=== PATIENT | male | born 1975 | race Caucasian/White ===

== ENCOUNTER 2019-01-12 11:15 | Observation (INO) | payer SELFPAY ==
[2019-01-12 11:43] LABS: Absolute Lymphocytes (CBC) 1.6 K/uL (0.7-4.9); Absolute Neutrophil 9.9 K/uL (1.8-8.0); Basophils % 0.5 % (0-1.3); Eosinophils % 0.9 % (0-4.4); Hematocrit 44.4 % (39.6-49.0); Lymphocytes % 12.6 % (15.3-44.8); MPV 7.4 fL (7.6-11.3); Monocytes % 8.2 % (3.3-12.3); RBC Red Blood Cell Count 4.84 M/uL (4.33-5.43)
[2019-01-12] MEDS ORDERED: FAMOTIDINE 20 MG/2 ML VIAL IV ONE (11:47)
[2019-01-12] MEDS ORDERED: ASPIRIN 81 MG CHEWABLE TABLET ONE (11:47)
[2019-01-12 11:55] LABS: Protime INR 0.98
[2019-01-12 12:02] LABS: ALT/SGPT 113 U/L (12-78); AST/SGOT 74 U/L (15-37); Alkaline Phosphatase 100 U/L (45-117); BUN Blood Urea Nitrogen 13 mg/dL (7-18); Bicarbonate 19 mmol/L (21-32); Bilirubin Direct 0.2 mg/dL (0-0.2); Bilirubin Total 0.9 mg/dL (0.2-1.0); Glucose Level 99 mg/dL (74-106); Lipase 136 U/L (73-393); Magnesium 2.1 mg/dL (1.8-2.4); NT PRO-BNP 27 pg/mL (<125); Potassium 3.8 mmol/L (3.5-5.1); Protein, Total 7.6 g/dL (6.4-8.2); Sodium Level 137 mmol/L (136-145); Troponin (Emerg Dept Use Only) < 0.02 ng/mL (0.0-0.045)
--- NOTE | 2019-01-12 12:05 | RAD REPORT ---
EXAM DESCRIPTION: Shashank Single View01/12/2019 11:50 am CLINICAL HISTORY: Chest pain COMPARISON: none FINDINGS: The lungs appear clear of acute infiltrate. The heart is normal size IMPRESSION: No acute abnormalities displayed
--- NOTE | 2019-01-12 12:32 | RAD REPORT ---
EXAM DESCRIPTION: CT - Head Brain Wo Cont - 01/12/2019 12:23 pm CLINICAL HISTORY: Visual disturbance COMPARISON: None. TECHNIQUE: Computed axial tomography of the head was obtained. IV contrast was not requested. All CT scans are performed using dose optimization technique as appropriate and may include automated exposure control or mA/KV adjustment according to patient size. FINDINGS: An intracranial bleed is not seen . The ventricles are normal in caliber. No extra-axial fluid collection is noted. Fluid within the sinuses/ mastoids is not seen. IMPRESSION: No acute intracranial abnormality is seen. If patient's symptoms persist MRI of the bra in would be recommended.
--- NOTE | 2019-01-12 12:55 | ER ---
Nurse's Notes [facility] Name: Richy Rose Age: 43 yrs Sex: Male : 1975 Arrival Date: 01/12/2019 Time: 11:16 Bed 3 Private MD: Mayco Manzanares T Diagnosis: Chest pain, unspecified Presentation: 01/12 11:20 Presenting complaint: Patient states: Severe chest pain on Thursday and Thursday with la1 elevated BP and blurry vision, got a little better but is coming back, sent by Dr manzanares. Transition of care: patient was not received from another setting of care. Onset of symptoms was January 12, 2019. Risk Assessment: Do you want to hurt yourself or someone else? Patient reports no desire to harm self or others. Initial Sepsis Screen: Does the patient meet any 2 criteria? No. Patient's initial sepsis screen is negative. Does the patient have a suspected source of infection? No. Patient's initial sepsis screen is negative. Care prior to arrival: None. 11:20 Method Of Arrival: Wheelchair la1 11:20 Acuity: MELISSA 2 la1 Historical: - Allergies: 11:22 No Known Allergies; la1 - Home Meds: 11:22 None [Active]; la1 - PMHx: 11:22 None; la1 - Immunization history:: Adult Immunizations up to date. - Social history:: Smoking status: Patient uses tobacco products, smokes one-half pack cigarettes per day. - Ebola Screening: : Patient denies travel to an Ebola-affected area in the 21 days before illness onset. Screenin:20 Abuse screen: Denies threats or abuse. Denies injuries from another. Nutritional sg screening: No deficits noted. Tuberculosis screening: No symptoms or risk factors identified. Never had TB. Fall Risk None identified. Assessment: 11:27 General: Appears in no apparent distress. comfortable, well groomed, well developed, sg well nourished, Behavior is calm, cooperative, appropriate for age. Pain: Complains of pain in chest Pain radiates to left arm Aggravated by increased activity, Also complains of shortness of breath. Neuro: Level of Consciousness is awake, alert, obeys commands, Oriented to person, place, time, situation, Blending Line Attendant are equal bilaterally Moves all extremities. Speech is normal, Facial symmetry appears normal, Pupils are PERRLA. Cardiovascular: Capillary refill is brisk in bilateral fingers Patient's skin is warm and dry. Chest pain is described as mild, quality is crushing, radiates to left arm(s). Respiratory: Airway is patent Respiratory effort is even, unlabored, Respiratory pattern is regular, symmetrical. GI: Abdomen is round. : No signs and/or symptoms were reported regarding the genitourinary system. EENT: No signs and/or symptoms were reported regarding the EENT system. Derm: Skin is pink, warm \T\ dry. Musculoskeletal: No signs and/or symptoms reported regarding the musculoskeletal system. Vital Signs: 11:22 Weight 106.59 kg; Height 5 ft. 11 in. (180.34 cm); la1 11:25 Temp 97.4; sg 11:29 BP 158 / 97; Pulse 79; Resp 15; Pulse Ox 100% ; sg 12:34 BP 149 / 94; Pulse 70; Resp 12; Pulse Ox 100% on R/A; sg 13:40 BP 149 / 98; Pulse 76; Resp 13; Temp 97.2; Pulse Ox 98% on R/A; sg 11:22 Body Mass Index 32.78 (106.59 kg, 180.34 cm) la1 ED Course: 11:16 Patient arrived in ED. mr 11:17 Mayco Manzanares MD is Private Physician. mr 11:18 [facility]erre[facility]. cp 11:18 Chun Winters MD is Attending Physician. cp 11:21 Triage completed. la1 11:22 Arm band placed on left wrist. EKG completed in triage. Results shown to MD. la1 11:27 Ronald Metzger, RN is Primary Nurse. sg 11:27 Patient has correct armband on for positive identification. Placed in gown. Bed in low sg position. conveyor monitor on. Pulse ox on. NIBP on. Warm blanket given. Head of bed elevated. 11:29 Inserted saline lock: 20 gauge in right forearm, using aseptic technique. Blood em1 collected. 11:49 X-ray completed. Portable x-ray completed in exam room. Patient tolerated procedure ls3 well. 11:51 XRAY Chest (1 view) In Process Unspecified. EDMS 11:55 No provider procedures requiring assistance completed. sg 12:23 CT completed. Patient tolerated procedure well. Patient moved to CT via wheelchair. sj Patient moved back from CT. 12:23 CT Head Brain wo Cont In Process Unspecified. EDMS 12:54 Bonifacio Cruz MD is Hospitalizing Provider. cp 13:00 Patient admitted, IV remains in place. intact, bleeding controlled, No redness/swelling sg at site. Pressure dressing applied. Patient maintains SpO2 saturation greater than 95% on room air. Administered Medications: 11:34 Drug: Pepcid 20 mg Route: IVP; Site: right antecubital; sg 11:34 Drug: Aspirin Chewable Tablet 324 mg Route: PO; sg Outcome: 12:55 Decision to Hospitalize by Provider. cp 14:26 Admitted to Tele accompanied by tech, family with patient, via wheelchair, room 431, sg with chart, Report called to Dung MILLER 14:26 Condition: stable 14:26 Instructed on the need for admit, safety practices, Demonstrated understanding of instructions. 14:34 Patient left the ED. jb1 Signatures: Dispatcher [employer] EDRichardson Vasques jb1 Ronald Metzger, RN RN Melanie Walls, Sergio Rea em1 Jorge Douglas RN RN la1 Guerrero Uriostegui, PA PA Amy Nunn ls3
--- NOTE | 2019-01-12 12:55 | EDPHYS ---
Physician Documentation [facility] Name: Richy Rose Age: 43 yrs Sex: Male : 1975 Arrival Date: 01/12/2019 Time: 11:16 Bed 3 Private MD: Mayco Schmitt T ED Physician Chun Winters HPI: 01/12 11:35 This 43 yrs old Male presents to ER via Wheelchair with complaints of Chest cp Pain. 11:35 The patient or guardian reports chest pain that is located primarily in the anterior cp chest wall. 11:35 Onset: 4 day(s) ago. The pain radiates to the left arm. Associated signs and symptoms: cp Pertinent positives: dizziness, Pertinent negatives: abdominal pain, lower extremity pain, lower extremity swelling, vomiting. The chest pain is described as clutching. Duration: The patient or guardian reports multiple episodes, that are intermittent. Modifying factors: the symptoms are aggravated by activity. Severity of pain: in the emergency department the pain has improved moderately. The patient has been recently seen by a physician: Dr. Schmitt earlier today, with similar presenting complaints, and was sent to the [facility] Emergency Department for further evaluation. Historical: - Allergies: 11:22 No Known Allergies; la1 - Home Meds: 11:22 None [Active]; la1 - PMHx: 11:22 None; la1 - Immunization history:: Adult Immunizations up to date. - Social history:: Smoking status: Patient uses tobacco products, smokes one-half pack cigarettes per day. - Ebola Screening: : Patient denies travel to an Ebola-affected area in the 21 days before illness onset. ROS: 11:40 Constitutional: Negative for body aches, chills, fever, poor PO intake. cp 11:40 Eyes: Positive for blurry vision, Negative for discharge, pain, redness, vision loss. cp 11:40 ENT: Negative for drainage from ear(s), ear pain, sore throat, difficulty swallowing, difficulty handling secretions. 11:40 Neck: Negative for pain with movement, pain at rest, stiffness, tenderness. 11:40 Cardiovascular: Positive for chest pain, Negative for edema, palpitations. 11:40 Respiratory: Negative for cough, shortness of breath, wheezing. 11:40 Abdomen/GI: Negative for abdominal pain, vomiting, diarrhea, constipation, black/tarry stool, rectal bleeding. 11:40 Back: Negative for pain at rest, pain with movement, radiated pain. 11:40 : Negative for urinary symptoms. 11:40 Skin: Negative for cellulitis, rash. 11:40 Neuro: Positive for dizziness, general weakness, Negative for altered mental status, headache, syncope. 11:40 All other systems are negative. Exam: 11:30 ECG was reviewed by the Attending Physician. cp 11:45 Constitutional: The patient appears in no acute distress, alert, awake, cp non-diaphoretic, non-toxic, well developed, well nourished. 11:45 Head/Face: Normocephalic, atraumatic. cp 11:45 Eyes: Pupils equal round and reactive to light, extra-ocular motions intact. Lids and cp lashes normal. Conjunctiva and sclera are non-icteric and not injected. Cornea within normal limits. Periorbital areas with no swelling, redness, or edema. ENT: Nares patent. No nasal discharge, no septal abnormalities noted. Tympanic membranes are normal and external auditory canals are clear. Oropharynx with no redness, swelling, or masses, exudates, or evidence of obstruction, uvula midline. Mucous membranes moist. Neck: Trachea midline, no thyromegaly or masses palpated, and no cervical lymphadenopathy. Supple, full range of motion without nuchal rigidity, or vertebral point tenderness. No Meningismus. Chest/axilla: Normal chest wall appearance and motion. Nontender with no deformity. No lesions are appreciated. 11:45 Cardiovascular: Rate: normal, Rhythm: regular, Edema: is not appreciated, JVD: is not appreciated. 11:45 Respiratory: the patient does not display signs of respiratory distress, Respirations: cp normal, no use of accessory muscles, no retractions, no splinting, no tachypnea, labored breathing, is not present, Breath sounds: are clear throughout, no decreased breath sounds, no stridor, no wheezing. 11:45 Abdomen/GI: Inspection: abdomen appears normal, Bowel sounds: active, all quadrants, Palpation: abdomen is soft and non-tender, in all quadrants, rebound tenderness, is not appreciated, voluntary guarding, is not appreciated, involuntary guarding, is not appreciated. 11:45 Back: pain, is absent, ROM is normal. 11:45 Musculoskeletal/extremity: Exam is negative for decreased range of motion, deformity, injury. 11:45 Skin: no rash present. 11:45 Neuro: Orientation: to person, place \T\ time. Mentation: is normal, Cerebellar function: is grossly normal, Motor: moves all fours, strength is normal, Sensation: is normal, Gait: is steady. Vital Signs: 11:22 Weight 106.59 kg; Height 5 ft. 11 in. (180.34 cm); la1 11:25 Temp 97.4; sg 11:29 BP 158 / 97; Pulse 79; Resp 15; Pulse Ox 100% ; sg 12:34 BP 149 / 94; Pulse 70; Resp 12; Pulse Ox 100% on R/A; sg 13:40 BP 149 / 98; Pulse 76; Resp 13; Temp 97.2; Pulse Ox 98% on R/A; sg 11:22 Body Mass Index 32.78 (106.59 kg, 180.34 cm) la1 MDM: 11:30 Patient medically screened. cp 12:00 Differential diagnosis: abnormal EKG, acute myocardial infarction, pneumonia, cp pneumothorax, pulmonary embolus, stable angina, unstable angina. 12:18 Physician consultation: Bonifacio Cruz MD was called at 12:18, left message on voicemail. cp 12:45 Data reviewed: vital signs, nurses notes, lab test result(s), EKG, radiologic studies, cp CT scan, plain films. 12:45 The patient was given aspirin in the Emergency Department. Test interpretation: by ED cp physician or midlevel provider: ECG, plain radiologic studies. 01/12 11:30 Order name: Basic Metabolic Panel; Complete Time: 12:09 01/12 12:10 Interpretation: Normal except: CL 109; CO2 19; GFR 86. cp 01/12 11:30 Order name: CBC with Diff; Complete Time: 12:09 01/12 12:10 Interpretation: Normal except: WBC 12.7; MPV 7.4; LOLLY% 77.8; LYM% 12.6; NEUT A 9.9. cp 01/12 11:30 Order name: LFT's; Complete Time: 12:09 01/12 12:10 Interpretation: Normal except: AST 74; ALT 113. 01/12 11:30 Order name: Magnesium; Complete Time: 12:09 01/12 11:30 Order name: NT PRO-BNP; Complete Time: 12:09 cp 01/12 11:30 Order name: PT-INR; Complete Time: 12:09 cp 01/12 11:30 Order name: Troponin (emerg Dept Use Only); Complete Time: 12:09 cp 01/12 11:30 Order name: XRAY Chest (1 view); Complete Time: 12:09 cp 01/12 11:30 Order name: Lipase; Complete Time: 12:09 cp 01/12 12:15 Order name: CT Head Brain wo Cont; Complete Time: 12:40 cp 01/12 12:40 Interpretation: Report reviewed. cp 01/12 14:10 Order name: Urine Dipstick--Ancillary (enter results) bd 01/12 14:17 Order name: Urine Dipstick-Ancillary EDMS 01/12 11:30 Order name: EKG; Complete Time: 11:32 cp 01/12 11:30 Order name: Cardiac monitoring; Complete Time: 11:34 cp 01/12 11:30 Order name: EKG - Nurse/Tech; Complete Time: 11:34 cp 01/12 11:30 Order name: IV Saline Lock; Complete Time: 11:34 cp 01/12 11:30 Order name: Labs collected and sent; Complete Time: 11:34 cp 01/12 11:30 Order name: O2 Per Protocol; Complete Time: 11:34 cp 01/12 11:30 Order name: O2 Sat Monitoring; Complete Time: 11:34 cp EC:30 Rate is 77 beats/min. Rhythm is regular. MD interval is normal. QRS interval is normal. cp QT interval is normal. Interpreted by me. Reviewed by me. Administered Medications: 11:34 Drug: Pepcid 20 mg Route: IVP; Site: right antecubital; sg 11:34 Drug: Aspirin Chewable Tablet 324 mg Route: PO; sg Disposition: 14:45 Chart complete. cp 15:20 Co-signature as Attending Physician, Chun Winters MD. rn Disposition: 01/12/19 12:55 Hospitalization ordered by Bonifacio Cruz for Observation. Preliminary diagnosis is Chest pain, unspecified. - Bed requested for Telemetry/MedSurg (observation). - Status is Observation. jb1 - Condition is Stable. - Problem is new. - Symptoms have improved. UTI on Admission? No Signatures: Dispatcher [employer] EDMS Richardson Oakes jb1 Hien Maravilla bd Ronald Metzger RN Chun Garvin MD MD rn Attema, Lee, RN RN la1 Guerrero Uriostegui PA PA cp Corrections: (The following items were deleted from the chart) 14:21 12:55 Hospitalization Ordered by Bonifacio Cruz MD for Observation. Preliminary diagnosis bd is Chest pain, unspecified. Bed requested for Telemetry/MedSurg (observation). Status is Observation. Condition is Stable. Problem is new. Symptoms have improved. UTI on Admission? No. cp 14:34 14:21 01/12/2019 12:55 Hospitalization Ordered by Bonifacio Cruz MD for Observation. jb1 Preliminary diagnosis is Chest pain, unspecified. Bed requested for Telemetry/MedSurg (observation). Status is Observation. Condition is Stable. Problem is new. Symptoms have improved. UTI on Admission? No. bd
[2019-01-12 14:17] LABS: Urine Blood NEGATIVE (NEG); Urine Glucose NEGATIVE (NEG); Urine Protein NEGATIVE (NEG); Urine Specific Gravity <1.005 (1.005-1.030)
[2019-01-12] MEDS ORDERED: NITROGLYCERIN 0.4 MG/TAB SL PRN (14:32)
[2019-01-12] MEDS ORDERED: ACETAMINOPHEN 500 MG TAB PO PRN (14:32)
[2019-01-12] MEDS ORDERED: MORPHINE 2 MG/ML SYR IV PRN (14:32)
[2019-01-12] MEDS: ENOXAPARIN 40 MG/0.4 ML SQ SCH (15:30)
[2019-01-12] MEDS ORDERED: LORazepam 2 MG/ML VIAL IV PRN (17:24)
[2019-01-12] MEDS ORDERED: PNEUMOCOCCAL VACCINE 0.5 ML IMVAC ONE (18:00)
[2019-01-12] MEDS ORDERED: POTASSIUM CL SA 10 MEQ TAB PO ONE (18:00)
--- NOTE | 2019-01-12 18:24 | EKG ---
Test Date: 2019-01-12 Test Time: 11:22:13 Communications Project Manager: BRANNON MEASUREMENT RESULTS: Intervals: Rate: 77 VT: 120 QRSD: 96 QT: 382 QTc: 432 [place]: P: 24 VT: 120 QRS: 45 T: 34 INTERPRETIVE STATEMENTS: Normal sinus rhythm Normal ECG Compared to ECG 10/11/2005 03:00:00 No significant changes Electronically Signed On 01-12-19 18:23:45 CDT by Angus Steen
[2019-01-12] MEDS: FOLIC ACID 1 MG, MULTIVITAMINS INJ 10 ML, THIAMINE HCL 100 MG in NA CHLORIDE 0.9% 1,000 ML IV SCH (18:27)
[2019-01-12] MEDS ORDERED: ATORVASTATIN 40 MG TAB PO SCH (21:00)
[2019-01-12] MEDS: RANITIDINE 150 MG TABLET PO SCH (21:58)
[2019-01-12] MEDS: METOPROLOL TAR 25 MG TAB PO SCH (21:59)
--- NOTE | 2019-01-13 00:04 | CON ---
A 43-year-old man. Chief Complaint: Chest pain. History Of Present Illness: Mr. Rose went to see Dr. Schmitt today because he has been having chest pain for a week. Chest pain is actually improving now. Pain is highly atypical, located in the fron t part of the chest. No particular thing seem to make it better or worse. At the same time, he was having aches and pains all over his body. It felt difficult for him to move. It seemed to hurt and be stiff kind of everywhere. At large, it was getting better when he got to see Dr. Schmitt for the his tory and sent him to the ER. He is admitted since then. His EKG looks normal. Cardiac enzymes are normal. The patient does not have a previous history of myocardial infarction, stroke, or any vascul ar disease. He is a heavy alcohol user, also smoked heavily until about 5 days ago when he quit. No illegal drug use. Home Medications: None. Physical Examination: General: 5 feet 11, 235 pounds. Alert, awake, oriented, pleasant, cooperative, laughing a lot, not in any distress. HEENT: Normal. Lungs: Clear. Cardiac Exam: Within normal limits. Abdomen: Soft. Extremities: Normal. No cyanosis, clubbing, or edema. Distal pulses are normal. Laboratory Data: EKG normal. Enzymes normal. The patient will have an echo and pharmacologic stres s test. In the meantime, tests will be done to evaluate abnormal liver function tests to be on the look out for alcohol withdrawal symptoms or delirium tremens. TOÑA/DUY Voice ID: [id number] Report ID: [id number]
--- NOTE | 2019-01-13 03:20 | HP ---
Date of Admission: 01/12/2019 Primary Care Physician: Mayco Schmitt M.D. Chief Complaint: Chest pain. Consultants: Dr. Stene with Cardiology. History Of Present Illness: The patient is a 43-year-old male with no significant past medical histo ry, who was in his usual state of health until Thursday when the patient states he partied to hard, smo ked too many cigarettes, and was drinking heavily. The patient's drink of choice is beer. The patie nt felt sudden left-sided chest pain along with shortness of breath and nausea. The patient had decr eased appetite, also reported some numbness and tingling in his left arm. The patient waited to see if the symptoms would pass. However, chest pain was intermittent, however did not completely resolve . Therefore, he made an appointment with his primary care physician after checking his blood pressur e which was in the 160s. The patient was referred to the ER by Dr. Schmitt for further evaluation. In the ER, his workup revealed negative troponin level. His WBC count was elevated at 12.7. His chest x-ray was clear. Head CT scan was also done which was negative for any acute changes. The patient w as then referred for admission. His symptoms are constant, moderate, and progressively worsening. Past Medical History: None. Past Surgical History: Appendectomy 10 years ago. Allergies: NO KNOWN DRUG ALLERGIES. Medications: The patient does not take any medications at home. Social History: The patient is . 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 The patient smokes half a pack per day , has been smoking for the past 19 years. The patient also drinks about 5-6 beers a day. The patien t drinks tallboys. Denies ever going into withdrawal or going to rehab. The patient does smoke rubio thais occasionally. No IV drug use. Family History: The patient denies any premature coronary artery disease in the family. Grandmother had liver complications from drinking. Review of Systems: Ten-point system reviewed, negative except as per HPI. Physical Examination: Vital Signs: Temperature 99.1, heart rate 66, blood pressure 150/94, respirations 18, O2 98% on room air. General: Awake, alert, oriented x3. Some mild distress. Obese male. HEENT: Normocephalic, atraumatic. PERRLA. EOMI. Moist mucous membranes. Oropharynx is clear. Co njunctivae anicteric. Neck: Supple. No JVD. Trachea midline. CV: S1, S2. Regular rate and rhythm. Peripheral pulses present. No murmurs. Respiratory: Clear to auscultation bilaterally. No wheezing or stridor. No use of accessory muscle s. Gastrointestinal: Abdomen is soft, nontender, nondistended. Positive bowel sounds. Extremities: No clubbing, cyanosis, or edema. No calf tenderness. Neuro: Cranial nerves 2 through 12 intact grossly. No focal neurological deficits. Speech is berto l. Sensation intact to light touch. Skin: No rashes. Normal skin turgor. Psych: Mood is good. Affect is full. Insight and judgment are fair. Laboratory Data: Sodium 137, potassium 3.8, chloride 109, CO2 19, BUN 13, creatinine 0.95, glucose 9 9, calcium 8.9, magnesium 2.1. AST 74, ALT 113, troponin less than 0.02. WBC 12.7, H and H 15.8 and 44.4, platelets 284, neutrophils 77%, INR 0.98. Chest x-ray personally reviewed shows no acute abno rmalities, no infiltrates. CT scan of the head shows no acute intracranial changes, no bleeding mass . Assessment And Plan: A 43-year-old male with 1.Chest pain, rule out acute coronary syndrome. The patient is a heavy smoker, has uncontrolled blo od pressure, not on any medications, never been diagnosed with hypertension previously. Also drinks heavily. 2.Elevated blood pressure, without diagnosis of hypertension. We will continue with beta-hank an d UMESH inhibitor. Monitor blood pressure. 3.Obesity. Body mass index of 32.8. Counseled. 4.Alcohol abuse. The patient has been counseled. 5.Elevated liver enzymes, likely due to alcohol abuse. We will continue to monitor. 6.Nicotine dependence with cigarette smoking, continuous. The patient has been counseled. We will provide nicotine patch if needed. 7.Deep vein thrombosis prophylaxis with Lovenox. Plan: Admit the patient to Med-Surg, place as observation. We will continue with chest pain guideli sherita, beta-hank, aspirin, statin, and UMESH inhibitor. We will check lipid panel in a.m. Cardiology has been consulted. We will obtain echocardiogram, possible stress test in a.m. Discharge once ACS has been ruled out and cleared by Cardiology. /MODL Voice ID: [id number]
[2019-01-13 06:55] LABS: Absolute Lymphocytes (CBC) 1.9 K/uL (0.7-4.9); Absolute Monocytes 0.8 K/uL (0.1-1.3); Absolute Neutrophil 4.5 K/uL (1.8-8.0); Basophils % 0.7 % (0-1.3); Eosinophils % 2.8 % (0-4.4); Lymphocytes % 25.7 % (15.3-44.8); MPV 7.2 fL (7.6-11.3); Monocytes % 10.6 % (3.3-12.3); RBC Red Blood Cell Count 4.55 M/uL (4.33-5.43)
[2019-01-13 07:20] LABS: Albumin 3.4 g/dL (3.4-5.0); Bilirubin Total 0.7 mg/dL (0.2-1.0); Magnesium 2.2 mg/dL (1.8-2.4); Phosphorus 3.1 mg/dL (2.5-4.9); Potassium 4.5 mmol/L (3.5-5.1); Protein, Total 6.7 g/dL (6.4-8.2)
[2019-01-13] MEDS ORDERED: LISINOPRIL 10 MG TAB PO SCH (09:00)
[2019-01-13] MEDS ORDERED: ASPIRIN EC 81 MG TAB PO SCH (09:00)
[2019-01-13] MEDS ORDERED: REGADENOSON 0.4 MG/5 ML SYR IV ONE (09:14)
[2019-01-13] MEDS: FOLIC ACID 1 MG, MULTIVITAMINS INJ 10 ML, THIAMINE HCL 100 MG in NA CHLORIDE 0.9% 1,000 ML IV SCH (10:30)
[2019-01-13] MEDS: METOPROLOL TAR 25 MG TAB PO SCH (10:31)
[2019-01-13] MEDS: ENOXAPARIN 40 MG/0.4 ML SQ SCH (10:34)
[2019-01-13] MEDS: RANITIDINE 150 MG TABLET PO SCH (10:34)
--- NOTE | 2019-01-13 11:34 | RAD REPORT ---
EXAM DESCRIPTION: NM - Rest Stress Cardiac Imaging - 01/13/2019 11:17 am CLINICAL HISTORY: Chest pain. COMPARISON: None. TECHNIQUE: The patient was administered approximately 10mCi of Tc 99m Sestamibi prior to resting SPE CT imaging of the heart. The patient was then administered approximately 30 mCi of Tc 99m Sestamibi f ollowing exercise or pharmacologic stress. Multiplanar SPECT images were reviewed. FINDINGS: On stress images there is a small to moderate area of diminished radiotracer uptake which involves the inferoapical left ventricular myocardium. On rest images there is partial reaccumulation of the of radiotracer within the inferoapical left juan tricular myocardium. . Left ventricular ejection fraction equals 51% IMPRESSION: Apparent small to moderate partially reversible perfusion defect involving the inferoap ical left ventricular myocardium. My suspicion is that this is all secondary to attenuation from the diaphragm. Stress induced ischemia is considered less likely
--- NOTE | 2019-01-13 13:32 | ECHO ---
HEIGHT: 5 ft 11 in WEIGHT: 235 lb 0 oz DATE OF STUDY: 01/13/[address]: Bonifacio Cruz MD 2-DIMENSIONAL: YES M.MODE: YES DOPPLER: YES COLOR FLOW: YES TDS: PORTABLE: DEFINITY: BUBBLE STUDY: DIAGNOSIS: CHEST PAIN CARDIAC HISTORY: CATHERIZATION: NO SURGERY: NO PROSTHETIC VALVE: NO PACEMAKER: NO MEASUREMENTS (cm) DIASTOLIC (NORMALS) SYSTOLIC (NORMALS) IVSd 1.0 (0.6-1.2) LA Diam 3.8 (1.9-4.0) LVEF 76% LVIDd 4.8 (3.5-5.7) LVIDs 2.6 (2.0-3.5) %FS 45% LVPWd 1.2 (0.6-1.2) Ao Diam 3.0 (2.0-3.7) 2 DIMENSIONAL ASSESSMENT: RIGHT ATRIUM: NORMAL LEFT ATRIUM: NORMAL RIGHT VENTRICLE: NORMAL LEFT VENTRICLE: NORMAL TRICUSPID VALVE: NORMAL MITRAL VALVE: NORMAL PULMONIC VALVE: NORMAL AORTIC VALVE: NORMAL PERICARDIAL EFFUSION: NONE AORTIC ROOT: NORMAL LEFT VENTRICULAR WALL MOTION: NORMAL DOPPLER/COLOR FLOW: NORMAL COMMENTS: NORMAL TWO DIMENSIONAL ECHOCARDIOGRAM WITH DOPPLER. NO WALL MOTION ABNORMALITY. NO EFFUSION. TECHNOLOGIST: LIANE RODRIGUEZ
--- NOTE | 2019-01-13 13:40 | TREADPHA ---
DX: CHEST PAIN Date of Study: 01/13/19 Ht: 5 11 Wt: 235 lb 0 oz Consulting Physician: FARHAN MEDICATIONS: TYLENOL, ASPIRIN, LIPITOR, LOVENOX, PRINIVIL, ATIVAN. HISTORY: 43 YEAR MALE WITH COMPLAINTS OF CHEST PAIN. HISTORY: SMOKER PACK DAILY. DRINKS A SIX PACK OF BEER DAILY. PHYSICIAL EXAMINATION: RESTING B.P.: 137/97 RESTING H.R.: 66 RESTING EKG: NORMAL PROTOCOL: LEXISCAN EXERCISE TIME: 3:30 B.P. AT PEAK STRESS: 155/85 IMPRESSION: LEXISCAN INJECTED, FOLLOWED BY CARDIOLITE PER PROTOCOL, SEE NUCLEAR MEDICINE REPORT. NO SUPRAVENTRICULAR TACHYCARDIA, NO VENTRICULAR TACHYCARDIA, NO PREMATURE ATRIAL COMPLEXS, ANO NO PREMATURE VENTRICULAR COMPLEXS. PATIENT REPORTED NO CHEST PAIN.
--- NOTE | 2019-01-13 23:56 | CON ---
History Of Present Illness: The patient is a 43-year-old who came in, was admitted to Dr. Marti on . He came in with atypical chest pain that has been going on intermittently for few days. N o nausea, vomiting, diaphoresis, PND, orthopnea, pedal edema, palpitations, or syncope. Symptoms are mostly mid epigastric. Nonexertional. Past Medical History: Negative. Allergies: NONE. Review of Systems: Negative. Social History: Negative. Family History: Noncontributory. Physical Examination: Reported from the chart to be within normal limit. Diagnostic Data: Normal including EKG, troponin. An echocardiogram and a Lexiscan are pending, and I agree with that. DICTATION ENDS HERE MONTSERRAT/DUY Voice ID: [id number] Report ID: [id number]
--- NOTE | 2019-01-14 13:34 | DS ---
Date of Discharge: 01/13/2019 Consultants: Dr. Barajas with Cardiology. Procedures: Cardiac stress test on 01/13/2019, no stress-induced ischemia. There was some attenuati on artifact present. Discharge Diagnoses: 1.Chest pain. Acute coronary syndrome ruled out. 2.Obesity, BMI 32.8. 3.Alcohol abuse, counseled. 4.Elevated blood pressure without diagnosis of hypertension. 5.Elevated liver enzymes, likely due to alcohol abuse. 6.Nicotine dependence with cigarette smoking, continuous. Hospital Course: The patient is a 43-year-old male with no significant past medical history, comes i n with chest pain after heavy drinking and smoking. The patient has been a smoker for significant pe riod of time. He was also a heavy drinker, who binges quite a bit. The patient was started on chest pain guidelines. Cardiac enzymes were obtained, which were negative x3. Cardiology was consulted. The patient was scheduled for cardiac stress test, which was obtained the following day and was nega tive for any stress-induced ischemia. His echocardiogram showed EF of 76%, no hypokinesis. The brody ent's lipid panel was normal. The patient was counseled extensively regarding his alcohol and tobacc o use. He understands that his life and health are in danger as these are causes of significant morb idity and mortality. In fact, his liver enzymes are elevated, likely indicating some formal liver da mage related to his alcohol. The patient voiced understanding. He seemed enthusiastic to change his current lifestyle. The patient otherwise did well over the course of the hospital stay. His white count normalized. He was then cleared for discharge from Cardiology standpoint. He was then sent ho wi in a stable condition. Activity: As tolerated. Medications: As per medication reconciliation list. Diet: Heart healthy diet. Absolutely no alcohol. Followup: Follow up with primary care physician in 2 to 3 days. Follow up with value engineer, Dr. Ambrosio vang or Dr. Barajas, in 2 weeks. Return to ER for worsening condition. Monitor blood pressure level and keep a log and take to primary care physician in order to prevent complications from high blood pressure. Physical Examination: General: Awake, alert, oriented, no acute distress. CV: S1, S2. No murmurs. Respiratory: Moving air well bilaterally. Abdomen: Soft, nontender, nondistended. Positive bowel sounds. Extremities: No clubbing, cyanosis, or edema. /DUY Voice ID: [id number] Report ID: [id number]
== END 2019-01-13 16:30 | disposition home or self-care (01) ==
LOC: ER 11:15 → ERHOLD 13:10 → 4TH 14:26
PROVIDERS: ADMIT Family Medicine; ATTEND Family Medicine
DX: R07.9 Chest pain, unspecified (principal); I10 Essential (primary) hypertension; E66.9 Obesity, unspecified; R94.5 Abnormal results of liver function studies; F17.210 Nicotine dependence, cigarettes, uncomplicated; F10.10 Alcohol abuse, uncomplicated; F12.90 Cannabis use, unspecified, uncomplicated; Z23 Encounter for immunization; Z68.32 Body mass index [BMI] 32.0-32.9, adult; Z71.41 Alcohol abuse counseling and surveillance of alcoholic
CPT/HCPCS: 36415; 70450; 71045; 78452; 80048; 80053; 80061; 80076; 81003; 83690; 83735; 83880; 84100; 84484; 85025; 85610; 93005; 93017; 93306; 94760; 96374; 99285; A9500; G0378; J1650; J2785; J3411; J7030

== ENCOUNTER 2019-01-14 18:13 | Emergency (ER) | payer SELFPAY ==
[2019-01-14 19:00] LABS: Absolute Lymphocytes (CBC) 2.2 K/uL (0.7-4.9); Absolute Monocytes 0.9 K/uL (0.1-1.3); Absolute Neutrophil 6.3 K/uL (1.8-8.0); Basophils % 0.8 % (0-1.3); Eosinophils % 1.9 % (0-4.4); Lymphocytes % 22.8 % (15.3-44.8); MPV 7.4 fL (7.6-11.3); Monocytes % 9.3 % (3.3-12.3); RBC Red Blood Cell Count 4.67 M/uL (4.33-5.43)
[2019-01-14 19:05] LABS: Protime INR 1.01
[2019-01-14 19:30] LABS: ALT/SGPT 98 U/L (12-78); AST/SGOT 37 U/L (15-37); Albumin 3.9 g/dL (3.4-5.0); Alkaline Phosphatase 88 U/L (45-117); BUN Blood Urea Nitrogen 13 mg/dL (7-18); Bicarbonate 20 mmol/L (21-32); Bilirubin Direct 0.1 mg/dL (0-0.2); Bilirubin Total 0.4 mg/dL (0.2-1.0); Glucose Level 88 mg/dL (74-106); Magnesium 2.1 mg/dL (1.8-2.4); NT PRO-BNP 28 pg/mL (<125); Potassium 3.6 mmol/L (3.5-5.1); Protein, Total 7.3 g/dL (6.4-8.2); Sodium Level 140 mmol/L (136-145); Troponin (Emerg Dept Use Only) < 0.02 ng/mL (0.0-0.045)
--- NOTE | 2019-01-14 19:54 | RAD REPORT ---
EXAM DESCRIPTION: RAD - Chest Single View - 01/14/2019 6:53 pm CLINICAL HISTORY: Chest pain COMPARISON: January 12 TECHNIQUE: AP portable chest image was obtained 1842 hours . FINDINGS: Lungs are clear. Lung markings are similar to comparison. Heart and vasculature are normal . No measurable pleural effusion and no pneumothorax. No acute bony abnormality seen. No acute aortic findings suspected. IMPRESSION: No acute cardiopulmonary process. No identifiable change from short interval January 12 study.
--- NOTE | 2019-01-14 20:16 | EDPHYS ---
Physician Documentation [facility] [place], [place] Name: Richy Rose Age: 43 yrs Sex: Male : 1975 Arrival Date: 01/14/2019 Time: 18:14 Bed 30 Private MD: ED Physician Lewis Sam HPI: 01/14 19:35 This 43 yrs old Male presents to ER via Ambulatory with complaints of Chest pm1 Pain. 19:35 The patient or guardian reports chest pain that is located primarily in the mid-sternal pm1 area. Onset: this morning, today, at 09:00. The pain does not radiate. Associated signs and symptoms: The patient has no apparent associated signs or symptoms. The chest pain is described as aching. Duration: The patient or guardian reports a single episode, that is now resolved, just prior to arrival to the ER. Modifying factors: The symptoms are alleviated by nothing. the symptoms are aggravated by nothing. Severity of pain: in the emergency department the pain has resolved. The patient has been recently been admitted at [facility], was discharged yesterday, for similar complaints. Historical: - Allergies: 18:29 No Known Allergies; tw2 - Home Meds: 18:29 None [Active]; tw2 - PMHx: 18:29 None; tw2 - PSHx: 18:29 Appendectomy; tw2 - Immunization history:: Adult Immunizations up to date. - Social history:: Smoking status: Patient/guardian denies using tobacco. - Ebola Screening: : Patient negative for fever greater than or equal to 101.5 degrees Fahrenheit, and additional compatible Ebola Virus Disease symptoms Patient denies exposure to infectious person Patient denies travel to an Ebola-affected area in the 21 days before illness onset No symptoms or risks identified at this time. ROS: 19:35 Constitutional: Negative for fever, chills, and weight loss, Eyes: Negative for injury, pm1 pain, redness, and discharge, ENT: Negative for injury, pain, and discharge, Neck: Negative for injury, pain, and swelling. 19:35 Respiratory: Negative for shortness of breath, cough, wheezing, and pleuritic chest pain, Abdomen/GI: Negative for abdominal pain, nausea, vomiting, diarrhea, and constipation, Back: Negative for injury and pain, : Negative for injury, bleeding, discharge, and swelling, MS/Extremity: Negative for injury and deformity, Skin: Negative for injury, rash, and discoloration, Neuro: Negative for headache, weakness, numbness, tingling, and seizure. 19:35 Cardiovascular: Positive for chest pain, Negative for edema, palpitations. Exam: 19:35 Constitutional: This is a well developed, well nourished patient who is awake, alert, pm1 and in no acute distress. Head/Face: Normocephalic, atraumatic. Eyes: Pupils equal round and reactive to light, extra-ocular motions intact. Lids and lashes normal. Conjunctiva and sclera are non-icteric and not injected. Cornea within normal limits. Periorbital areas with no swelling, redness, or edema. ENT: Nares patent. No nasal discharge, no septal abnormalities noted. Tympanic membranes are normal and external auditory canals are clear. Oropharynx with no redness, swelling, or masses, exudates, or evidence of obstruction, uvula midline. Mucous membranes moist. Neck: Trachea midline, no thyromegaly or masses palpated, and no cervical lymphadenopathy. Supple, full range of motion without nuchal rigidity, or vertebral point tenderness. No Meningismus. Chest/axilla: Normal chest wall appearance and motion. Nontender with no deformity. No lesions are appreciated. Cardiovascular: Regular rate and rhythm with a normal S1 and S2. No gallops, murmurs, or rubs. Normal PMI, no JVD. No pulse deficits. Respiratory: Lungs have equal breath sounds bilaterally, clear to auscultation and percussion. No rales, rhonchi or wheezes noted. No increased work of breathing, no retractions or nasal flaring. Abdomen/GI: Soft, non-tender, with normal bowel sounds. No distension or tympany. No guarding or rebound. No evidence of tenderness throughout. Back: No spinal tenderness. No costovertebral tenderness. Full range of motion. Skin: Warm, dry with normal turgor. Normal color with no rashes, no lesions, and no evidence of cellulitis. MS/ Extremity: Pulses equal, no cyanosis. Neurovascular intact. Full, normal range of motion. 19:35 Neuro: Orientation: is normal, Motor: is normal, moves all fours. Vital Signs: 18:28 BP 134 / 87; Pulse 83; Resp 16; Temp 98.2; Pulse Ox 99% ; lt1 18:29 Weight 106.59 kg (R); tw2 19:56 BP 122 / 82; Pulse 66; Resp 18; Temp 98.6; Pulse Ox 100% on R/A; Pain 0/10; mg2 20:28 BP 132 / 85; Pulse 70; Resp 18; Temp 98; Pulse Ox 100% on R/A; Pain 0/10; mg2 MDM: 19:11 Patient medically screened. pm1 20:15 Data reviewed: vital signs. Data interpreted: Pulse oximetry: on room air is 100 %. pm1 Interpretation: normal. Counseling: I had a detailed discussion with the patient and/or guardian regarding: the historical points, exam findings, and any diagnostic results supporting the discharge/admit diagnosis, lab results, radiology results, the need for outpatient follow up, to return to the emergency department if symptoms worsen or persist or if there are any questions or concerns that arise at home. 01/14 18:31 Order name: Basic Metabolic Panel; Complete Time: 19:49 01/14 18:31 Order name: CBC with Diff; Complete Time: 19:17 01/14 18:31 Order name: LFT's; Complete Time: 19:49 01/14 18:31 Order name: Magnesium; Complete Time: 19:49 01/14 18:31 Order name: NT PRO-BNP; Complete Time: 19:49 01/14 18:31 Order name: PT-INR; Complete Time: 19:17 01/14 18:31 Order name: Troponin (emerg Dept Use Only); Complete Time: 19:49 01/14 18:31 Order name: XRAY Chest (1 view); Complete Time: 19:59 01/14 18:31 Order name: EKG; Complete Time: 18:32 01/14 18:31 Order name: Cardiac monitoring; Complete Time: 18:31 01/14 18:31 Order name: EKG - Nurse/Tech; Complete Time: 18:31 01/14 18:31 Order name: IV Saline Lock; Complete Time: 18:51 01/14 18:31 Order name: Labs collected and sent; Complete Time: 18:51 01/14 18:31 Order name: O2 Per Protocol; Complete Time: 18:32 tw2 01/14 18:31 Order name: O2 Sat Monitoring; Complete Time: 18:32 tw2 Administered Medications: No medications were administered Disposition: 01/15 16:31 Co-signature as Attending Physician, Lewis Sam MD. Disposition: 01/14/19 20:15 Discharged to Home. Impression: Chest pain, unspecified. - Condition is Stable. - Discharge Instructions: Nonspecific Chest Pain. - Prescriptions for Hydroxyzine HCl 50 mg Oral Tablet - take 1 tablet by ORAL route every 8 hours As needed; 20 tablet. - Medication Reconciliation Form, Thank You Letter, Antibiotic Education, Prescription Opioid Use form. - Follow up: Emergency Department; When: As needed; Reason: Worsening of condition. Follow up: Private Physician; When: 2 - 3 days; Reason: Recheck today's complaints, Continuance of care, Re-evaluation by your physician. - Problem is new. - Symptoms have improved. Signatures: Dispatcher [employer] EDWA Elio Jarrett NP MINING TECHNICIAN pm1 Aye Pollard RN RN tw2 Lewis Sam MD MD Jac Montes De Oca, RN RN mg2 Corrections: (The following items were deleted from the chart) 01/14 20:31 20:15 01/14/2019 20:15 Discharged to Home. Impression: Chest pain, unspecified. mg2 Condition is Stable. Forms are Medication Reconciliation Form, Thank You Letter, Antibiotic Education, Prescription Opioid Use. Follow up: Emergency Department; When: As needed; Reason: Worsening of condition. Follow up: Private Physician; When: 2 - 3 days; Reason: Recheck today's complaints, Continuance of care, Re-evaluation by your physician. Problem is new. Symptoms have improved. pm1
--- NOTE | 2019-01-14 20:16 | ER ---
Nurse's Notes [facility] Name: Richy Rose Age: 43 yrs Sex: Male : 1975 Arrival Date: 01/14/2019 Time: 18:14 Bed 30 Private MD: Diagnosis: Chest pain, unspecified Presentation: 01/14 18:25 Presenting complaint: Patient states: chest pain started at approximately 1330 today. tw2 Pt took 324 aspirin. Pt is less now than when it started. Pain was rated 8/10 and is now 5/10. Pt states he was discharged yesterday. Was admitted for chest pain. Transition of care: patient was not received from another setting of care. Onset of symptoms was January 14, 2019 at 13:30. Risk Assessment: Do you want to hurt yourself or someone else? Patient reports no desire to harm self or others. Initial Sepsis Screen: Does the patient meet any 2 criteria? No. Patient's initial sepsis screen is negative. Does the patient have a suspected source of infection? No. Patient's initial sepsis screen is negative. Care prior to arrival: None. 18:25 Method Of Arrival: Ambulatory tw2 18:25 Acuity: MELISSA 2 tw2 Triage Assessment: 18:29 General: Appears in no apparent distress. uncomfortable, Behavior is calm, cooperative. tw2 Pain: Complains of pain in chest Pain currently is 5 out of 10 on a pain scale. Pain began suddenly, 4 hours ago. Neuro: Level of Consciousness is awake, alert, obeys commands, Oriented to person, place, time, situation. Cardiovascular: Reports chest pain. Respiratory: Airway is patent Respiratory effort is even, unlabored, relaxed, Respiratory pattern is regular, symmetrical. Derm: Skin is pink, warm \T\ dry. Historical: - Allergies: 18:29 No Known Allergies; tw2 - Home Meds: 18:29 None [Active]; tw2 - PMHx: 18:29 None; tw2 - PSHx: 18:29 Appendectomy; tw2 - Immunization history:: Adult Immunizations up to date. - Social history:: Smoking status: Patient/guardian denies using tobacco. - Ebola Screening: : Patient negative for fever greater than or equal to 101.5 degrees Fahrenheit, and additional compatible Ebola Virus Disease symptoms Patient denies exposure to infectious person Patient denies travel to an Ebola-affected area in the 21 days before illness onset No symptoms or risks identified at this time. Screenin:55 Abuse screen: Denies threats or abuse. Denies injuries from another. Nutritional mg2 screening: No deficits noted. Tuberculosis screening: No symptoms or risk factors identified. Fall Risk IV access (20 points). Assessment: 19:54 General: Appears in no apparent distress. comfortable, Behavior is calm, cooperative. mg2 Pain: Denies pain. Neuro: Level of Consciousness is awake, alert, obeys commands, Oriented to person, place, time, situation. Cardiovascular: Reports None chest pain, he had on and off chest pain, pain free now. Respiratory: Airway is patent Respiratory effort is even, unlabored, Respiratory pattern is regular, symmetrical. GI: No signs and/or symptoms were reported involving the gastrointestinal system. : No signs and/or symptoms were reported regarding the genitourinary system. EENT: No signs and/or symptoms were reported regarding the EENT system. Derm: Skin is intact, is healthy with good turgor, Skin is pink, warm \T\ dry. normal. Musculoskeletal: Circulation, motion, and sensation intact. Capillary refill < 3 seconds. 20:28 Reassessment: Patient denies pain at this time. Patient states feeling better. mg2 20:31 Pain: Pain does not radiate. mg2 Vital Signs: 18:28 BP 134 / 87; Pulse 83; Resp 16; Temp 98.2; Pulse Ox 99% ; lt1 18:29 Weight 106.59 kg (R); tw2 19:56 BP 122 / 82; Pulse 66; Resp 18; Temp 98.6; Pulse Ox 100% on R/A; Pain 0/10; mg2 20:28 BP 132 / 85; Pulse 70; Resp 18; Temp 98; Pulse Ox 100% on R/A; Pain 0/10; mg2 ED Course: 18:14 Patient arrived in ED. as 18:28 Triage completed. tw2 18:29 Arm band placed on right wrist. Patient placed in an exam room, on a stretcher, on tw2 cardiac monitor technician. EKG done per protocol. Performed by ED Staff. 18:36 Jac Montes De Oca, PAUL is Primary Nurse. mg2 18:47 XRAY Chest (1 view) In Process Unspecified. EDMS 18:51 Initial lab(s) drawn, by sc, sent to lab. Inserted saline lock: 20 gauge in right lt1 antecubital area, using aseptic technique. 19:11 Elio Jarrett NP is PHCP. pm1 19:11 Lewis Sam MD is Attending Physician. pm1 19:56 Patient has correct armband on for positive identification. nurse monitoring on. Pulse mg2 ox on. NIBP on. 19:56 No provider procedures requiring assistance completed. Patient maintains SpO2 mg2 saturation greater than 95% on room air. 20:28 IV discontinued, intact, bleeding controlled, No redness/swelling at site. Pressure mg2 dressing applied. Administered Medications: No medications were administered Outcome: 20:15 Discharge ordered by . pm1 20:30 Discharged to home ambulatory, with family. mg2 20:30 Condition: stable 20:30 Discharge instructions given to patient, family, Instructed on discharge instructions, follow up and referral plans. medication usage, Demonstrated understanding of instructions, follow-up care, medications, Prescriptions given X 1. 20:31 Patient left the ED. mg2 Signatures: Dispatcher [employer] EDMS Verona Hanks as Elio Jarrett NP PLAYGROUND ATTENDANT pm1 Aye Pollard, RN RN tw2 Jac Montes De Oca, PAUL RN mg2 Tabitha Irwin lt1
--- NOTE | 2019-01-15 14:26 | EKG ---
Test Date: 2019-01-14 Test Time: 18:22:39 Varnish Dipper: ABEBET MEASUREMENT RESULTS: Intervals: Rate: 86 WI: 132 QRSD: 94 QT: 380 QTc: 454 [place]: P: 38 WI: 132 QRS: 52 T: 35 INTERPRETIVE STATEMENTS: Normal sinus rhythm Normal ECG Compared to ECG 01/12/2019 11:22:13 No significant changes Electronically Signed On 01-15-19 14:26:18 CDT by Angus Steen
== END 2019-01-14 20:31 | disposition home or self-care (01) ==
LOC: ER 18:13
DX: R07.9 Chest pain, unspecified (principal)
CPT/HCPCS: 36415; 71045; 80048; 80076; 83735; 83880; 84484; 85025; 85610; 93005; 99285